=== PATIENT | female | born 1985 | race Caucasian/White ===

== ENCOUNTER 2020-08-04 15:34 | Emergency (ER) | payer OTHER ==
[~2020-08-04 15:34] MED LIST: ATARAX25 MG PO; BENTYL10 MG PO; BIRTH CONTROL; CEFDINIR300 MG PO; CLOTRIM VAGINAL45 GM TOP; DEXILANT60 MG PO; DIFLUCAN150 MG PO; ETODOLAC500 MG PO; HCTZ25 MG PO; K-DUR20 MEQ PO; MUPIROCIN 2%22 GM TD; NORCO 5-325 TA1 EAC1 PO; PERCOCET 10/321 EACH PO; PHENERGAN25 M1 PO; PRILOSEC20 MG PO; PRINIVIL10 MG PO; PROMETHAZINE HC25 MG PR; TRIAMCINOLONE A15 G1 TD; XANAX1 MG PO
[2020-08-04 17:48] LABS: BASOPHIL 0.7 % (0-2); EOSINOPHIL 0 % (0-5); HCT 38.9 % (37.0-47.0); HGB 12.7 g/dl (12.5-16.0); LYMPHOCYTE 21.3 % (15-48); MCH 30.8 pg (25.0-31.0); MCHC 32.6 g/dL (32.0-36.0); MCV 94.4 fL (78.0-100.0); MONOCYTE 6.3 % (0-12); MPV 11.2 fL (6.0-9.5); NEUTROPHIL 71.3 % (41-80); NRBC 0; PLT 200 K/uL (150-400); RBC 4.12 M/uL (4.20-5.40); RDW 12.9 % (11.5-14.0); WBC 10.8 K/uL (4.0-10.5)
[2020-08-04 18:08] LABS: ALBUMIN 3.5 g/dL (3.4-5.0); BILIRUBIN - TOTAL 0.3 mg/dL (0.2-1.0); BUN/CREAT RATIO (CALC) 23.8 RATIO; C-REACTIVE PROTEIN 2.8 mg/dL (<=0.90); CREATININE 0.63 mg/dL (0.51-0.95); GLOBULIN (CALCULATION) 3.6 g/dL; POTASSIUM 3.5 mmol/L (3.5-5.1); TOTAL PROTEIN 7.1 g/dL (6.4-8.2)
[2020-08-04] MEDS ORDERED: KEFLEX250 MG PO (19:26)
[2020-08-04] MEDS ORDERED: NAPROXEN500 MG PO (19:26)
[2020-08-04] MEDS ORDERED: VOLTAREN100 GM TOP (19:26)
== END 2020-08-04 19:40 | disposition home or self-care (01) ==
LOC: FER 15:34
PROVIDERS: Emergency Medicine
DX: L03.113 Cellulitis of right upper limb (principal); I10 Essential (primary) hypertension; F17.210 Nicotine dependence, cigarettes, uncomplicated
CPT/HCPCS: 36415; 73110; 80053; 84145; 85025; 86140; J1885

== ENCOUNTER 2020-11-29 02:52 | Emergency (ER) | payer OTHER ==
[~2020-11-29 02:52] MED LIST changes: +KEFLEX250 MG PO; +NAPROXEN500 MG PO; +VOLTAREN100 GM TOP
[2020-11-29] MEDS ORDERED: HYDROCORTISONE30 G5 TOP (03:11)
[2020-11-29] MEDS ORDERED: ATIVAN0.5 MG PO (03:12)
== END 2020-11-29 03:45 | disposition home or self-care (01) ==
LOC: FER 02:52
DX: R21 Rash and other nonspecific skin eruption (principal); F41.9 Anxiety disorder, unspecified; Z91.048 Other nonmedicinal substance allergy status
CPT/HCPCS: 99282

== ENCOUNTER 2020-12-14 19:38 | Emergency (ER) | payer OTHER ==
[~2020-12-14 19:38] MED LIST changes: +ATIVAN0.5 MG PO; +HYDROCORTISONE30 G5 TOP
[2020-12-14] MEDS ORDERED: KEFLEX250 MG PO (21:29)
== END 2020-12-14 21:40 | disposition home or self-care (01) ==
LOC: FER 19:38
DX: S61.022A Laceration with foreign body of left thumb without damage to nail, initial encounter (principal); I10 Essential (primary) hypertension; Z23 Encounter for immunization; F17.210 Nicotine dependence, cigarettes, uncomplicated; W29.3XXA Contact with powered garden and outdoor hand tools and machinery, initial encounter; Y92.009 Unspecified place in unspecified non-institutional (private) residence as the place of occurrence of the external cause
CPT/HCPCS: 90471; 90715